=== PATIENT | female | born 1995 | race Caucasian/White ===

== ENCOUNTER 2019-07-15 22:37 | Emergency (ER) | payer SELFPAY ==
[~2019-07-15] VITALS: Ht 152.4 cm; Wt 72.6 kg
[2019-07-15 22:39] VITALS: BP 131/78
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
[2019-07-15 22:59] VITALS: BP 131/78
--- NOTE | 2019-07-15 22:59 | NUR ---
Patient discharged with v/s stable. Written and verbal after care instructions given and explained. Patient verbalized understanding. Ambulatory with steady gait, in custody with LIZY Ng #[id number]. All questions addressed prior to discharge. Advised to follow up with PMD.
== END 2019-07-15 22:59 ==
LOC: MED 22:37
DX: M25.511 Pain in right shoulder (principal); Z02.89 Encounter for other administrative examinations; V89.2XXA Person injured in unspecified motor-vehicle accident, traffic, initial encounter; Y93.89 Activity, other specified; Y92.89 Other specified places as the place of occurrence of the external cause; Y99.8 Other external cause status
CPT/HCPCS: 99283